=== PATIENT | female | born 1960 | race Caucasian/White ===

== ENCOUNTER 2022-11-11 12:11 | Emergency (ER) | payer BC ==
[~2022-11-11] VITALS: Ht 162.6 cm; Wt 74.4 kg
[2022-11-11 12:25] LABS: BASOPHILS # (AUTO) 0.1 X10'3 (0-0.2); BASOPHILS % (AUTO) 1.1 % (0-1); EOSINOPHILS # (AUTO) 0.1 X10'3 (0-0.9); EOSINOPHILS % (AUTO) 0.8 % (0-6); HEMATOCRIT 40.5 % (35.0-45.0); HEMOGLOBIN 13.5 g/dl (12.0-16.0); LYMPHOCYTES # (AUTO) 1.9 X10'3 (1.1-4.8); LYMPHOCYTES % (AUTO) 28.7 % (21-51); MEAN CORPUSCULAR HEMOGLOBIN 27.9 PG (27.0-31.0); MEAN CORPUSCULAR HGB CONC 33.3 g/dL (33.0-36.5); MEAN CORPUSCULAR VOLUME 83.7 FL (78-98); MEAN PLATELET VOLUME 6.9 FL (7.4-10.4); MONOCYTES # (AUTO) 0.6 X10'3 (0-0.9); MONOCYTES % (AUTO) 9.3 % (2-12); NEUTROPHILS % (AUTO) 60.1 % (42-75); PLATELET COUNT 275 X10'3 (140-440); RED BLOOD COUNT 4.84 X10'6 (4.20-5.60); RED CELL DISTRIBUTION WIDTH 14.4 % (11.5-14.5); WHITE BLOOD COUNT 6.7 X10'3 (4.5-11.0)
[2022-11-11 12:37] LABS: ALANINE AMINOTRANSFERASE 21 U/L (12-78); ALBUMIN 4.1 G/DL (3.4-5.0); ALBUMIN/GLOBULIN RATIO 1.3 (1.1-1.5); ALKALINE PHOSPHATASE 99 IU/L (46-116); ANION GAP 9 (8-16); ASPARTATE AMINO TRANSFERASE 17 U/L (10-37); BILIRUBIN,TOTAL 0.3 MG/DL (0.1-1.0); BLOOD UREA NITROGEN 20 MG/DL (7-18); BUN/CREATININE RATIO 22.2 (10.0-20.0); CALCIUM 9.6 MG/DL (8.5-10.1); CHLORIDE 104 MMOL/L (99-107); GLUCOSE 106 MG/DL (70-104); POTASSIUM 4.1 MMOL/L (3.5-5.1); SODIUM 140 MMOL/L (135-145); TOTAL CARBON DIOXIDE 26.9 MMOL/L (24-32); TOTAL PROTEIN 7.3 G/DL (6.4-8.2); eGFR 64 ML/MIN
[2022-11-11 12:44] LABS: MAGNESIUM 2.1 MG/DL (1.5-2.4)
[2022-11-11 16:28] LABS: D-DIMER < 0.19 MG/L FEU (0-0.50)
--- NOTE | 2022-11-11 17:02 | NUR ---
PA to pt bedside at this time
[2022-11-11 17:21] VITALS: BP 131/68
== END 2022-11-11 17:24 | disposition home or self-care (01) ==
LOC: ER 12:11
DX: R07.89 Other chest pain (principal); Z79.899 Other long term (current) drug therapy
CPT/HCPCS: 36415; 71045; 80053; 83735; 83880; 84484; 85025; 85379; 93005; 99285

== ENCOUNTER 2023-11-01 21:28 | Emergency (ER) | payer BC ==
[~2023-11-01] VITALS: Ht 157.5 cm; Wt 80.5 kg
[2023-11-01 21:46] VITALS: BP 173/93; PULSE 109; RESP 16; TEMP 98.6; O2SAT 98
[2023-11-02 00:32] LABS: BILIRUBIN,URINE NEGATIVE (Neg); CLARITY,URINE TURBID (Clear); COLOR,URINE RED (Yellow); GLUCOSE, URINE NEGATIVE (Neg); KETONES,URINE NEGATIVE (Neg); LEUKOCYTE ESTERASE ,URINE SMALL (Neg); NITRITES, URINE POSITIVE (Neg); OCCULT BLOOD,URINE LARGE (Neg); PH,URINE 7.5 (4.8-8.0); PROTEIN,URINE 100 mg/dl (Neg)
[2023-11-02 00:51] LABS: UA COLLECTION TYPE CLN CATCH MIDSTREAM
[2023-11-02 00:54] LABS: RBC,URINE TNTC /HPF (0-2); SQUAMOUS EPITHELIAL CELL,UR FEW /LPF (FEW); WBC,URINE 50-100 /HPF (0-4)
[2023-11-02 00:55] LABS: BACTERIA,URINE 1+ /HPF (Neg)
== END 2023-11-02 00:32 | disposition left against medical advice (07) ==
LOC: ER 21:28
DX: R10.30 Lower abdominal pain, unspecified (principal); R11.0 Nausea; R31.9 Hematuria, unspecified; Z53.21 Procedure and treatment not carried out due to patient leaving prior to being seen by health care provider
CPT/HCPCS: 81001; 87077; 87088; 87186; 99281

== ENCOUNTER 2025-04-07 12:33 | Emergency (ER) | payer BC ==
[~2025-04-07] VITALS: Ht 160 cm; Wt 77.0 kg
--- NOTE | 2025-04-07 15:06 | Physician Documentation ---
History of Present Illness ~ Chief Complaint: Mechanical Fall Stated Complaint: FALL WITH HEAD STRIKE X 6 DAYS Time Seen by MD: 15:00 HPI 64-year-old female presents to the ED after having a significant fall while hiking six days ago. She states that when she fell she struck the left side of her head correct her glasses and medially had nausea vomiting and a headache.. Additionally patient had a previous cervical fusion surgery and states that she feels as though her hardware is out of place For last week she has had ongoing projectile vomiting light sensitivity nausea and headache. denies Blood thinners Medication Reconciliation Allergies: Coded Allergies: meloxicam (Verified Allergy, Severe, BLEEDING, 11/01/23) amoxicillin (Verified Allergy, Intermediate, RASH, 11/01/23) Scheduled PRN ONDANSETRON ODT 4mg tablet (Ondansetron Odt), 1 TAB PO Q6H PRN PRN for nausea/vomiting Review of Systems All Other Systems at this time: Reviewed and Negative ROS As stated above in the HPI, otherwise all systems are reviewed and negative. Physical Exam Vital Signs: Temperature: 97.8, Source: Temporal, Heart Rate: 60, Respiratory Rate: 18, BP: 184/82, Pulse Oximetry: 100, Weight: 77.000 Oxygen Flow Rate: 0 Physical Exam General: Alert, no apparent distress. HEENT: PERRL, EOMI, no injection, moist mucous membranes. No bruising no evidence of swelling or deformity Respiratory: Lungs clear, no respiratory distress. Cardiovascular: Regular rate and rhythm, no murmurs. Gastrointestinal: Soft, nontender, nondistended. Bowels sounds present. Neurologic: Oriented x4. Psychiatric: Normal mood and affect. Skin: Normal color, warm and dry. No edema, no ecchymosis. Progress Results/Orders Results/Orders Orders - DAVIN KELLEY ACCOUNTS RECEIVABLE ADMINISTRATOR Ct Cervical Spine (04/07/25 15:13) Ct Head (04/07/25 15:11) Completed Orders - DAVIN KELLEY ACCOUNTS RECEIVABLE ADMINISTRATOR Ct Cervical Spine (04/07/25 15:13) Ct Head (04/07/25 15:11) Ondansetron Disint. Tablet (Zofran Odt T (04/07/25 15:40) Vital Signs 04/07/25 04/07/25 04/07/25 04/07/25 12:37 15:37 15:40 15:57 Temp 97.8 97.8 Pulse 60 61 Resp 18 18 17 B/P (MAP) 184/82 172/84 (113) Pulse Ox 100 99 O2 Flow Rate 0 0 Medical Decision Making Findings Initially I was mostly concerned about the patient's some complaint of neck pain secondary to her previous surgical operation/fusion both her CT head and neck came back negative for any acute injuries. Verbalized reassurance. I am going to discharge her with Zofran to help with the nausea secondary to postconcussive syndrome. advised regarding Her the length symptoms for her that her imaging was negative and that her reported symptoms are normal for postconcussive syndrome Differential Dx:Considerations: Include: Closed head injury, Cardiac injury, Fracture(s), Intraabdominal injury, Pneumothorax, Cerebral contusion, Pulmonary contusion, Spine injury, Tracheal injury, Urological injury, Vascular injury, Abrasion(s), Contusion(s), Foreign body(s), Hematoma(s), Laceration(s), Encephalopathy, Other Departure Disposition: 01 HOME / SELF CARE / HOMELESS Impression: Primary Impression: Fall Discharge Instructions: Fall Prevention in the Home, Adult, [id number], Post- Concussion Syndrome, [id number] Referrals: NO PRIMARY CARE PROVIDER (PCP) Prescriptions ONDANSETRON ODT 4mg tablet (ONDANSETRON ODT) 4 Mg Tab.rapdis 1 TAB PO Q6H PRN PRN for nausea/vomiting for 4 Days, #16 TAB 0 Refills Prov: DAVIN KELLEY NP 04/07/25 Education Educated: Patient Educated regarding: diagnosis Signature Scribe Signature: f Attestation: Scribed for Davin Kelley Bench Assembly Inspector by Davin Ferreira NP . 04/07/25 22:51 DAVIN KELLEY NP Apr 07, 2025 15:06
--- NOTE | 2025-04-07 15:26 | RADIOLOGY REPORT ---
EXAM: CT CT HEAD INDICATION: fall 6 days ago/ previous fusion TECHNIQUE: CT of the head without intravenous contrast. Radiation Dose : 1. Head: CT Dose: CTDI volume is 51 mGy. Dose-length product is 859 mGy*cm The dose indicators for CT are the volume Computed Tomography (CT) Dose Index (CTDIvol) and the Dose Length Product (DLP), and are measured in units of mGy and mGy-cm, respectively. These indicators are not patient dose, but values generated from the CT scanner acquisition factors. The report includes radiation exposure data for exposures received during this examination. COMPARISON: None FINDINGS: There is no evidence of acute intracranial hemorrhage, extra-axial collection, mass effect, midline shift, herniation or hydrocephalus. The ventricles, sulci and cisterns are age appropriate. The iqbal-white differentiation is intact. The visualized paranasal sinuses and mastoid air cells are clear. The surrounding soft tissues and osseous structures are unremarkable. IMPRESSION: No acute intracranial abnormality. Radiation optimization: All CT scans at this facility use at least one of these dose optimization techniques: automated exposure control mA and/or kV adjustment per patient size (includes targeted exams where dose is matched to clinical indication) or iterative reconstruction.
[2025-04-07] MEDS ORDERED: ONDA-243 PO (15:37)
[2025-04-07 15:40] VITALS: BP 172/84; PULSE 61; RESP 17; O2SAT 99
--- NOTE | 2025-04-07 15:41 | RADIOLOGY REPORT ---
Indication: fall 6 days ago/ previous fusion Technique: CT axial images of the cervical spine are obtained without contrast. Coronal and sagittal reformats were obtained. Radiation Dose Information: CTDI volume is 20 mGy. Dose-length product is 438 mGy*cm Comparison: None FINDINGS: The cervical vertebral body heights are maintained. There is anterior fusion of the C4 and C5 vertebral bodies. Straightening of normal cervical spine curvature. There is moderate to severe disc space narrowing. No prevertebral edema. Facet articulations are in tact. . The atlantooccipital, atlantoaxial articulations are intact. IMPRESSION: Moderate to severe cervical degenerative disc disease.
[2025-04-07] MEDS: ondansetron 4mg rapidly disintigrating tab PO ONE (15:46)
[2025-04-07 15:57] VITALS: TEMP 97.8
== END 2025-04-07 16:00 | disposition home or self-care (01) ==
LOC: ER 12:34
DX: M54.2 Cervicalgia (principal); R51.9 Headache, unspecified; R11.2 Nausea with vomiting, unspecified; Z88.1 Allergy status to other antibiotic agents; Z88.8 Allergy status to other drugs, medicaments and biological substances; W18.30XA Fall on same level, unspecified, initial encounter; Y93.89 Activity, other specified; Y92.89 Other specified places as the place of occurrence of the external cause; Y99.8 Other external cause status
CPT/HCPCS: 70450; 72125; 99284